=== PATIENT | male | born 1975 | race Caucasian/White ===

== ENCOUNTER 2023-02-26 17:04 | Emergency (ER) | payer SELFPAY ==
--- NOTE | ~2023-02-26 | XR_ITS ---
EXAM: XR finger 5th RT min 2V DATE: 02/26/2023 17:42 HISTORY: LACERATION TO RIGHT PINKY . COMPARISON: 03/17/2011. FINDINGS: Normal mineralization. No fracture or dislocation. No lytic or blastic lesion. Joint space s and physes are maintained. Heterotopic ossification dorsal to the neck of the fifth middle phalange . No erosion or periosteal change. Soft tissues within normal limits. IMPRESSION: No acute osseous finding in the right fifth digit. Reviewed, dictated and finalized at location K.
[2023-02-26 17:15] VITALS: BP 148/88; PULSE 90; RESP 16; TEMP 36.4; O2SAT 100
--- NOTE | 2023-02-26 17:22 | ED.WOUNDLAC ---
HPI - Wound/Laceration General Chief Complaint: Wound/Laceration Stated Complaint: laceration to right hand Time Seen by Provider: 02/26/23 17:22 Source: patient Mode of arrival: ambulatory Limitations: no limitations History of Present Illness HPI narrative: 47-year-old male presented for complaint of laceration across the 4th and 5th fingers, which occurred today while he was at work around 1500. He states he was on a ladder working on a light when a piece sheet metal swung down and sliced the right hand. 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 Denies numbness, tingling, weakness, or decreased range of motion to the hand or fingers. Right hand dominant. Unsure of his last tetanus vaccination. Related Data Allergies Allergy/AdvReac Type Severity Reaction Status Date / Time No Known Allergies Allergy Verified 02/26/23 17:13 Review of Systems Review of Systems: CONSTITUTIONAL: Denies body aches, fever, chills EYES: Denies visual changes ENT: Denies rhinorrhea, congestion CARDIOVASCULAR: Denies chest pain, palpitations, or edema. RESPIRATORY: Denies cough or dyspnea. GASTROINTESTINAL: Denies abdominal pain, nausea, vomiting, or diarrhea. SKIN: Denies rash, itching, or wounds. MUSCULOSKELETAL: per HPI NEUROLOGIC: Denies headache, numbness, tingling, or weakness. All systems reviewed & are unremarkable except as noted in HPI and below PMFSH Past Medical History Medical History (Updated 02/26/23 @ 18:53 by Roxie Eugene APRN) No pertinent past medical history Family History Family History Other Cerebrovascular accident Diabetes mellitus Family history of mental disorder Social History Social History Alcohol intake: current Comments At time of signature, I have reviewed and agree with nursing past medical, surgical, social and family history unless otherwise noted. Please see nursing chart for further information. There is no relevant family history pertinent to the presenting complaint Exam Narrative: GENERAL: Well-appearing, well-nourished, and in no acute distress. HEAD: Normocephalic, atraumatic. EYES: PERRLA, conjunctivae clear NECK: Supple. CHEST: Speaks in full sentences. No respiratory distress. HEART: Regular rate and rhythm. Normal and equal peripheral pulses. EXTREMITIES: Right hand has normal strength and sensation, normal range of motion with flexion/extension/rotation, but endorses pain with movement. No/yes edema or ecchymosis, No/yes point tenderness. No open wounds, skin tenting, or obvious deformity; alignment normal, pulse palpable and equal bilaterally, skin warm, dry, pink. Capillary refill less than 3 seconds. SKIN: Warm, dry, no rash. NEURO: Alert and oriented x3. PSYCH: Normal mood and affect Course Course Emergency Course: Patient is aware of diagnosis, understands and agrees to treatment plan. Anticipatory guidance given. Patient agrees to follow-up as directed and is aware of reasons to seek care at the emergency department. Portions of this record may have been created with voice recognition software Level of Care: Express Care Visit Vital Signs Vital signs: Vital Signs Temperature 97.6 F 02/26/23 17:15 Pulse Rate 90 02/26/23 17:15 Respiratory Rate 16 02/26/23 17:15 Blood Pressure 148/88 H 02/26/23 17:15 Pulse Oximetry 100 02/26/23 17:15 Oxygen Delivery Room Air 02/26/23 17:15 Temperature 97.6 F 02/26/23 17:15 Pulse Rate 90 02/26/23 17:15 Respiratory Rate 16 02/26/23 17:15 Blood Pressure 148/88 H 02/26/23 17:15 Pulse Oximetry 100 02/26/23 17:15 Oxygen Delivery Room Air 02/26/23 17:15 Reviewed Procedures Laceration right hand 5th digit: Date: 02/26/23 Size (cm): 2 Description: irregular and clean Depth: simple, single layer Local Anesthetic
[2023-02-26] MEDS: TETANUS,DIPHTHERIA,AC PERTUSSIS ADULT (0.5 ML) BOOSTRIX IM (17:47)
== END 2023-02-26 18:59 | disposition home or self-care (01) ==
PROVIDERS: Emergency Provider Nurse Practitioner Family
DX: S61.214A Laceration without foreign body of right ring finger without damage to nail, initial encounter (principal); S61.216A Laceration without foreign body of right little finger without damage to nail, initial encounter; W26.8XXA Contact with other sharp object(s), not elsewhere classified, initial encounter; Y99.0 Civilian activity done for income or pay; Z23 Encounter for immunization
CPT/HCPCS: 12002; 73140; 90471; 90715; 99213; G0463

== ENCOUNTER 2023-03-09 09:17 | Emergency (ER) | payer SELFPAY ==
[2023-03-09 09:31] VITALS: BP 152/99; PULSE 84; RESP 16; TEMP 36.8; O2SAT 99
--- NOTE | 2023-03-09 09:42 | ED.SKABFB ---
HPI - Skin/Abscess/Foreign Bdy General Chief complaint: Skin/Abscess/Foreign Body Stated complaint: Stitches Removal Time Seen by Provider: 03/09/23 09:35 Source: patient Mode of arrival: ambulatory Limitations: no limitations History of Present Illness HPI narrative: 47-year-old male presents with concern for suture removal. Reports he had laceration repaired on the 5th digit of his right hand. He reports it has healed nicely. He denies any drainage, redness, warmth, swelling MD complaint: other (Suture removal) Related Data Allergies Allergy/AdvReac Type Severity Reaction Status Date / Time No Known Allergies Allergy Verified 03/09/23 09:31 Review of Systems Review of Systems: CONSTITUTIONAL: Denies malaise, chills, sweats, or fever. SKIN: Reports healing lacerations to the 4th and 5th digits of the right hand MUSCULOSKELETAL: Denies muscle skeletal pain NEUROLOGIC: Denies numbness, weakness All systems reviewed & are unremarkable except as noted in HPI and below PMFSH Past Medical History Medical History (Updated 03/09/23 @ 09:43 by Haley Lewis NP) No pertinent past medical history Family History Family History Other Cerebrovascular accident Diabetes mellitus Family history of mental disorder Social History Social History Alcohol intake: current Comments At time of signature, agree with nursing past medical, surgical, social and family history. There is no relevant family history pertinent to the presenting complaint Exam Narrative: GENERAL: Well-appearing, well-nourished, and in no acute distress. HEAD: Normocephalic, atraumatic. EYES: PERRLA, conjunctivae clear ENT: Mucous membranes moist. NECK: Supple. No lymphadenopathy CHEST: Clear to auscultation. No respiratory distress. HEART: Regular rate and rhythm. SKIN: Warm, dry. Well-approximated healed laceration noted to the dorsal aspect of the 5th digit of the right hand with 8 intact sutures. No surrounding erythema, edema, warmth, tenderness. Musculoskeletal function grossly intact NEURO: Alert and oriented x3. PSYCH: Normal mood and affect Course Course Emergency Course: Patient is aware of diagnosis, understands and agrees to treatment plan. Anticipatory guidance given. Patient agrees to follow-up as directed and is aware of reasons to seek care at the emergency department. Portions of this record may have been created with voice recognition software Level of Care: Express Care Visit Vital Signs Vital signs: Vital Signs Temperature 98.2 F 03/09/23 09:31 Pulse Rate 84 03/09/23 09:31 Respiratory Rate 16 03/09/23 09:31 Blood Pressure 152/99 H 03/09/23 09:31 Pulse Oximetry 99 03/09/23 09:31 Oxygen Delivery Room Air 03/09/23 09:31 Temperature 98.2 F 03/09/23 09:31 Pulse Rate 84 03/09/23 09:31 Respiratory Rate 16 03/09/23 09:31 Blood Pressure 152/99 H 03/09/23 09:31 Pulse Oximetry 99 03/09/23 09:31 Oxygen Delivery Room Air 03/09/23 09:31 Reviewed. MDM - Skin/Abscess/Foreign Bdy MDM Narrative Medical decision making narrative: Verbal consent was obtained. Wound well approximated, no erythema, induration, or discharge noted. Eight simple interrupted sutures completely removed in a sterile fashion. Patient tolerated procedure well, no complications. Patient advised to look for and return for any signs of infection such as redness, swelling, discharge, or worsening pain. Critical Care Time Critical Care Time Critical Care Time: No Discharge Plan Discharge Clinical Impression: Encounter for removal of sutures Patient Disposition: Home, Self-Care Condition: Stable Instructions: Stitches Removal (ED) Additional Instructions: AFTER the stitches are removed: Clean your wound as directed. Carefully wash your wound with soap and water. Pat the area
== END 2023-03-09 09:47 | disposition home or self-care (01) ==
PROVIDERS: Emergency Provider Nurse Practitioner; PCP Registered Nurse
DX: S61.216D Laceration without foreign body of right little finger without damage to nail, subsequent encounter (principal); X58.XXXD Exposure to other specified factors, subsequent encounter
CPT/HCPCS: 99211; G0463